=== PATIENT | male | born 1970 | race Two or more races ===

== ENCOUNTER 2018-06-05 10:02 | Outpatient (CLI) | payer OTHER ==
[2018-06-05] MEDS ORDERED: NEURONTIN800 MG PO (15:47)
[2018-06-05] MEDS ORDERED: TOPROL XL25 MG PO (15:48)
[2018-06-05] MEDS ORDERED: FENOFIBRATE160 MG PO (15:48)
[2018-06-05] MEDS ORDERED: JANUMET XR 50-1 EAC1 PO (15:48)
== END 2018-06-05 10:13 | disposition home or self-care (01) ==
LOC: RAD 501 10:02
DX: M25.552 Pain in left hip (principal); M25.551 Pain in right hip

== ENCOUNTER 2018-06-10 05:56 | Day surgery (SDC) | payer OTHER ==
[~2018-06-10 05:56] MED LIST: FENOFIBRATE160 MG PO; JANUMET XR 50-1 EAC1 PO; NEURONTIN800 MG PO; TOPROL XL25 MG PO
== END 2018-06-10 12:50 | disposition home or self-care (01) ==
LOC: CIR.AMB 05:56
DX: M75.31 Calcific tendinitis of right shoulder (principal); M19.011 Primary osteoarthritis, right shoulder; M24.511 Contracture, right shoulder; M75.21 Bicipital tendinitis, right shoulder; M75.01 Adhesive capsulitis of right shoulder

== ENCOUNTER 2018-07-09 11:19 | Outpatient (CLI) | payer OTHER | END 2018-07-09 13:19 | disposition home or self-care (01) | LOC: NUCLEAR 11:19 | DX: M81.0 Age-related osteoporosis without current pathological fracture (principal) ==

== ENCOUNTER 2019-05-22 05:10 | Day surgery (SDC) | payer OTHER ==
[~2019-05-22 05:10] MED LIST changes: +ASPIRIN LOW-STR81 M1 PO; +ATIVAN1 M1 PO; +CENTRUM ADULTS1 EACH PO; +CILOSTAZOL50 MG PO; +COZAAR50 MG PO; +FAMOTIDINE40 MG PO; +FENOFIB PO; +FOLGARD TABLET1 EACH PO; +FOLIC ACID1 MG PO; +GABAPENTIN400 MG PO; +PENTOXIFYLLINE400 MG PO; +TRAMADOL HCL50 MG PO; +WELLBUTRIN XL300 MG PO; +ZOCOR20 MG PO
== END 2019-05-22 12:25 | disposition home or self-care (01) ==
LOC: CIR.AMB 05:10
DX: M75.122 Complete rotator cuff tear or rupture of left shoulder, not specified as traumatic (principal); M75.22 Bicipital tendinitis, left shoulder; M19.012 Primary osteoarthritis, left shoulder; M24.512 Contracture, left shoulder; M65.812 Other synovitis and tenosynovitis, left shoulder

== ENCOUNTER 2020-02-03 09:12 | Outpatient (CLI) | payer OTHER | END 2020-02-03 09:19 | disposition home or self-care (01) | LOC: RAD 09:12 | DX: M25.562 Pain in left knee (principal) ==

== ENCOUNTER 2020-02-29 14:16 | Inpatient (IN) | payer OTHER ==
[~2020-02-29] VITALS: Ht 180.3 cm; Wt 89.8 kg
[2020-03-21] MEDS ORDERED: GRALISE600 MG PO (10:10)
[2020-03-23] MEDS ORDERED: TROMBONEX CAPS1 EACH PO (08:57)
[2020-03-23] MEDS ORDERED: TOPROL XL50 M1 PO (08:57)
[2020-03-23] MEDS ORDERED: RESTORIL30 M1 PO (08:58)
[2020-03-23] MEDS ORDERED: PLAVIX75 MG PO (08:58)
[2020-03-23] MEDS ORDERED: LORAZEPAM1 MG PO (08:59)
[2020-03-23] MEDS ORDERED: LANTUS (09:00)
[2020-03-28] MEDS ORDERED: TYLENOL ARTHRI650 MG PO (05:18)
[2020-03-28] MEDS ORDERED: LEVAQUIN500 MG PO (05:18)
[2020-03-28] MEDS ORDERED: NEURONTIN300 MG PO (05:18)
[2020-03-28] MEDS ORDERED: ULTRAM50 MG PO (05:18)
== END 2020-03-28 07:11 | disposition home or self-care (01) | DRG 355 ==
LOC: SURG 03-24 06:46 → O/R 03-24 06:46 → SURH 03-24 08:00 → SURG 03-24 15:35
PROVIDERS: ADMIT Surgery; ATTEND Surgery
PROC: 0WUF4JZ Supplement Abdominal Wall with Synthetic Substitute, Percutaneous Endoscopic Approach (ICD-10-PCS; principal; 2020-03-24 09:30)
DX: K43.0 Incisional hernia with obstruction, without gangrene (principal); K42.0 Umbilical hernia with obstruction, without gangrene

== ENCOUNTER 2020-03-21 10:36 | Outpatient (CLI) | payer OTHER ==
[~2020-03-21 10:36] MED LIST changes: +GRALISE600 MG PO
== END 2020-03-21 10:38 | disposition home or self-care (01) ==
LOC: RAD 10:36
DX: R10.84 Generalized abdominal pain (principal); I10 Essential (primary) hypertension